=== PATIENT | male | born 1950 | race Caucasian/White ===

== ENCOUNTER 2017-09-14 10:43 | Outpatient (REF) | payer MEDICARE, MEDICAID, SELFPAY ==
[2017-09-14 21:01] LABS: Abs Immature Grans 0.03 k/cumm (0.0-0.09); Absolute Basophil Count 0.05 k/cumm (0.0-0.2); Absolute Eosinophil Count 0.19 k/cumm (0.0-0.7); Absolute Lymphocyte Count 0.89 k/cumm (1.2-3.4); Absolute Neutrophil Count 4.66 k/cumm (1.2-6.7); Basophils % 0.7; Eosinophils % 2.8; HCT 43.6 % (40.0-50.0); HGB 14.9 g/dL (13.5-17.5); Immature Grans % 0.4; Mean Corp. HGB Concentration 34.2 g/dL (32.0-36.0); Mean Corpuscular Hemoglobin 36.4 pg (27.0-33.0); Mean Corpuscular Volume 106.6 fL (80-95); Mean Platelet Volume 11.8 fL (8.0-11.0); Monocytes % 14.7; Neutrophils % 68.4; Platelet Count 179 x1000/uL (130-400); RBC 4.09 m/cumm (4.50-6.00); White Blood Cell Count 6.82 k/cumm (4.4-10.8)
[2017-09-14 21:23] LABS: ALT 52 U/L (12-78); AST 38 U/L (15-37); Alkaline Phosphatase 79 U/L (46-116); Anion Gap 11.2 mmol/L (3-11); BUN 19 mg/dL (7-18); Bilirubin, Total 0.4 mg/dL (0.2-1.0); CO2 23.8 mmol/L (21.0-32.0); CREATININE 1.31 mg/dL (0.70-1.30); Calcium 8.9 mg/dL (8.5-10.1); Chloride 104 mmol/L (98-107); Estimated GFR 54.74 (mL/min/1.73m2); Glucose 102 mg/dL (70-100); Potassium 4.5 mmol/L (3.5-5.1); Sodium 139 mmol/L (136-145); Total Protein 7.1 g/dL (6.4-8.2)
[2017-09-14 21:27] LABS: Diff Comment RBC Morph Reviewed; Macrocytosis 3+
[2017-09-16 09:38] LABS: CEA 0.7 ng/ml
== END 2017-09-14 10:44 ==
LOC: LBN 10:43
PROVIDERS: PCP Internal Medicine; Visit Provider Internal Medicine Hematology & Oncology
DX: C18.2 Malignant neoplasm of ascending colon (principal)
CPT/HCPCS: 80053; 82378; 85025

== ENCOUNTER 2018-01-11 13:52 | Outpatient (REF) | payer MEDICARE, MEDICAID, SELFPAY ==
[2018-01-11 19:57] LABS: Abs Immature Grans 0.03 k/cumm (0.0-0.09); Absolute Basophil Count 0.05 k/cumm (0.0-0.2); Absolute Eosinophil Count 0.16 k/cumm (0.0-0.7); Absolute Lymphocyte Count 0.95 k/cumm (1.2-3.4); Absolute Monocyte Count 0.69 k/cumm (0.11-0.7); Absolute Neutrophil Count 5.75 k/cumm (1.2-6.7); Basophils % 0.7; Eosinophils % 2.1; HGB 15.9 g/dL (13.5-17.5); Immature Grans % 0.4; Lymphocytes % 12.5; Mean Corp. HGB Concentration 35.3 g/dL (32.0-36.0); Mean Corpuscular Hemoglobin 34.4 pg (27.0-33.0); Mean Corpuscular Volume 97.4 fL (80-95); Mean Platelet Volume 12.1 fL (8.0-11.0); Neutrophils % 75.3; Platelet Count 198 x1000/uL (130-400); RBC 4.62 m/cumm (4.50-6.00); RBC Distribution Width 14.5 % (11.8-14.1); White Blood Cell Count 7.63 k/cumm (4.4-10.8)
[2018-01-11 20:37] LABS: Albumin 3.9 g/dL (3.4-5.0); Alkaline Phosphatase 81 U/L (46-116); Anion Gap 10.5 mmol/L (3-11); Bilirubin, Total 0.4 mg/dL (0.2-1.0); CO2 26.5 mmol/L (21.0-32.0); CREATININE 1.51 mg/dL (0.70-1.30); Calcium 9.3 mg/dL (8.5-10.1); Chloride 102 mmol/L (98-107); Estimated GFR 46.47 (mL/min/1.73m2); Glucose 141 mg/dL (70-100); Potassium 4.3 mmol/L (3.5-5.1); Sodium 139 mmol/L (136-145); Total Protein 7.1 g/dL (6.4-8.2)
[2018-01-11 21:18] LABS: AST 48 U/L (15-37)
[2018-01-11 21:22] LABS: BUN 23 mg/dL (7-18)
[2018-01-11 21:38] LABS: ALT 59 U/L (12-78)
[2018-01-13 08:44] LABS: CEA 0.6 ng/ml
== END 2018-01-11 14:12 ==
LOC: LBN 13:52
PROVIDERS: PCP Internal Medicine; Visit Provider Internal Medicine Hematology & Oncology
DX: C18.6 Malignant neoplasm of descending colon (principal)
CPT/HCPCS: 80053; 82378; 85025

== ENCOUNTER 2018-02-02 11:21 | Outpatient (REF) | payer MEDICARE, MEDICAID, SELFPAY ==
[2018-02-02 19:50] LABS: Iron 76 ug/dL (50-175); Total Iron Binding Capacity 351 ug/dL (250-450); Transferrin Sat 22 % (20-55)
[2018-02-02 19:53] LABS: ALT 52 U/L (12-78); AST 43 U/L (15-37); Albumin 4.2 g/dL (3.4-5.0); Alkaline Phosphatase 77 U/L (46-116); Bilirubin, Direct 0.13 mg/dL (0.00-0.20); Bilirubin, Total 0.5 mg/dL (0.2-1.0); Total Protein 7.6 g/dL (6.4-8.2)
[2018-02-02 20:31] LABS: Ferritin 178 ng/mL (8-388)
[2018-02-06 11:03] LABS: Hepatitis C Ab w Rflx HCV PCR Negative (NEGAT)
== END 2018-02-02 11:41 ==
LOC: NCHCN 11:21
PROVIDERS: PCP Internal Medicine; Visit Provider Internal Medicine
DX: R94.5 Abnormal results of liver function studies (principal); I10 Essential (primary) hypertension; C18.9 Malignant neoplasm of colon, unspecified; Z11.59 Encounter for screening for other viral diseases
CPT/HCPCS: 80076; 86803; 82728; 83540; 83550

== ENCOUNTER 2018-08-22 10:38 | Outpatient (REF) | payer MEDICARE, MEDICAID, SELFPAY ==
[2018-08-22 18:50] LABS: Abs Immature Grans 0.04 k/cumm (0.0-0.09); Absolute Basophil Count 0.04 k/cumm (0.0-0.2); Absolute Eosinophil Count 0.19 k/cumm (0.0-0.7); Absolute Lymphocyte Count 0.98 k/cumm (1.2-3.4); Absolute Monocyte Count 0.99 k/cumm (0.11-0.7); Basophils % 0.5; Eosinophils % 2.5; HGB 15.1 g/dL (13.5-17.5); Immature Grans % 0.5; Mean Corp. HGB Concentration 35.1 g/dL (32.0-36.0); Mean Corpuscular Hemoglobin 34.2 pg (27.0-33.0); Mean Corpuscular Volume 97.5 fL (80-95); Mean Platelet Volume 11.4 fL (8.0-11.0); Monocytes % 13.1; Neutrophils % 70.4; Platelet Count 163 x1000/uL (130-400); RBC 4.41 m/cumm (4.50-6.00); RBC Distribution Width 14.6 % (11.8-14.1); White Blood Cell Count 7.54 k/cumm (4.4-10.8)
[2018-08-22 18:59] LABS: ALT 41 U/L (12-78); AST 27 U/L (15-37); Albumin 3.8 g/dL (3.4-5.0); Alkaline Phosphatase 87 U/L (46-116); Anion Gap 13.9 mmol/L (3-11); BUN 22 mg/dL (7-18); Bilirubin, Total 0.4 mg/dL (0.2-1.0); CO2 22.1 mmol/L (21.0-32.0); CREATININE 1.22 mg/dL (0.70-1.30); Calcium 9.3 mg/dL (8.5-10.1); Chloride 105 mmol/L (98-107); Estimated GFR 59.25 (mL/min/1.73m2); Glucose 95 mg/dL (70-100); Potassium 4.6 mmol/L (3.5-5.1); Sodium 141 mmol/L (136-145); Total Protein 6.7 g/dL (6.4-8.2)
[2018-08-24 09:13] LABS: CEA 1.1 ng/ml
== END 2018-08-22 10:58 ==
LOC: LBN 10:38
PROVIDERS: PCP Internal Medicine; Visit Provider Internal Medicine Hematology & Oncology
DX: C18.6 Malignant neoplasm of descending colon (principal)
CPT/HCPCS: 80053; 82378; 85025

== ENCOUNTER 2019-02-28 14:45 | Outpatient (REF) | payer MEDICARE, MEDICAID, SELFPAY ==
[2019-02-28 20:32] LABS: BUN 29 mg/dL (7-18); CREATININE 1.38 mg/dL (0.70-1.30); Calcium 9.6 mg/dL (8.5-10.1); Chloride 104 mmol/L (98-107); Glucose 121 mg/dL (74-106); Potassium 4.2 mmol/L (3.5-5.1); Sodium 140 mmol/L (136-145); Uric Acid 6.3 mg/dL (3.5-7.2)
== END 2019-02-28 15:05 ==
LOC: NCHCN 14:45
PROVIDERS: PCP Internal Medicine; Visit Provider Internal Medicine
DX: I10 Essential (primary) hypertension (principal); K43.2 Incisional hernia without obstruction or gangrene; M10.342 Gout due to renal impairment, left hand; E66.9 Obesity, unspecified
CPT/HCPCS: 80048; 84550

== ENCOUNTER 2019-04-04 10:45 | Outpatient (REF) | payer MEDICARE, MEDICAID, SELFPAY ==
[2019-04-04 21:29] LABS: Abs Immature Grans 0.06 k/cumm (0.0-0.09); Absolute Basophil Count 0.06 k/cumm (0.0-0.2); Absolute Eosinophil Count 0.36 k/cumm (0.0-0.7); Absolute Lymphocyte Count 0.93 k/cumm (1.2-3.4); Absolute Monocyte Count 0.97 k/cumm (0.11-0.7); Absolute Neutrophil Count 5.98 k/cumm (1.2-6.7); Basophils % 0.7; Eosinophils % 4.3; HCT 46.6 % (40.0-50.0); HGB 15.7 g/dL (13.5-17.5); Immature Grans % 0.7 %; Lymphocytes % 11.1; Mean Corp. HGB Concentration 33.7 g/dL (32.0-36.0); Mean Corpuscular Hemoglobin 32.7 pg (27.0-33.0); Mean Corpuscular Volume 97.1 fL (80-95); Mean Platelet Volume 11.9 fL (8.0-11.0); Monocytes % 11.6; Neutrophils % 71.6; Platelet Count 147 x1000/uL (130-400); White Blood Cell Count 8.36 k/cumm (4.4-10.8)
[2019-04-04 21:40] LABS: ALT 50 U/L (16-63); AST 34 U/L (15-37); Alkaline Phosphatase 78 U/L (46-116); BUN 25 mg/dL (7-18); Bilirubin, Total 0.3 mg/dL (0.2-1.0); CREATININE 1.48 mg/dL (0.70-1.30); Calcium 8.9 mg/dL (8.5-10.1); Chloride 104 mmol/L (98-107); Estimated GFR 47.41 (mL/min/1.73m2); Glucose 102 mg/dL (74-106); Potassium 4.4 mmol/L (3.5-5.1); Sodium 139 mmol/L (136-145)
== END 2019-04-04 11:05 ==
LOC: LBN 10:45
PROVIDERS: PCP Internal Medicine; Visit Provider Internal Medicine Hematology & Oncology
DX: C18.6 Malignant neoplasm of descending colon (principal)
CPT/HCPCS: 80053; 82378; 85025

== ENCOUNTER 2019-06-06 08:34 | Outpatient (REF) | payer MEDICARE, MEDICAID, SELFPAY ==
[2019-06-06 19:14] LABS: ALT 38 U/L (16-63); AST 30 U/L (15-37); Albumin 4.1 g/dL (3.4-5.0); Alkaline Phosphatase 75 U/L (46-116); BUN 22 mg/dL (7-18); Bilirubin, Total 0.5 mg/dL (0.2-1.0); CREATININE 1.44 mg/dL (0.70-1.30); Calcium 9.9 mg/dL (8.5-10.1); Calculated LDL 71 mg/dL (<100); Chloride 101 mmol/L (98-107); Cholesterol 167 mg/dL (<200); Estimated GFR 48.79 (mL/min/1.73m2); Glucose 105 mg/dL (74-106); HDL Cholesterol 57 mg/dL (40-60); Potassium 4.7 mmol/L (3.5-5.1); Sodium 138 mmol/L (136-145); Total Protein 7.3 g/dL (6.4-8.2); Triglyceride 199 mg/dL (<150)
[2019-06-06 20:12] LABS: Abs Immature Grans 0.03 k/cumm (0.0-0.09); Absolute Basophil Count 0.06 k/cumm (0.0-0.2); Absolute Eosinophil Count 0.21 k/cumm (0.0-0.7); Absolute Lymphocyte Count 0.99 k/cumm (1.2-3.4); Absolute Monocyte Count 0.67 k/cumm (0.11-0.7); Absolute Neutrophil Count 4.35 k/cumm (1.2-6.7); Eosinophils % 3.3; HCT 46.6 % (40.0-50.0); HGB 15.6 g/dL (13.5-17.5); Immature Grans % 0.5 %; Lymphocytes % 15.7; Mean Corp. HGB Concentration 33.5 g/dL (32.0-36.0); Mean Corpuscular Hemoglobin 33.1 pg (27.0-33.0); Mean Corpuscular Volume 98.7 fL (80-95); Mean Platelet Volume 12.3 fL (8.0-11.0); Monocytes % 10.6; Neutrophils % 68.9; Platelet Count 158 x1000/uL (130-400); RBC 4.72 m/cumm (4.50-6.00); RBC Distribution Width 14.6 % (11.8-14.1); White Blood Cell Count 6.31 k/cumm (4.4-10.8)
== END 2019-06-06 08:54 ==
LOC: NCHCN 08:34
PROVIDERS: PCP Internal Medicine; Visit Provider Internal Medicine
DX: E78.5 Hyperlipidemia, unspecified (principal); C18.6 Malignant neoplasm of descending colon
CPT/HCPCS: 80053; 80061; 82378; 85025

== ENCOUNTER 2020-03-24 17:12 | Outpatient (REF) | payer MEDICARE, MEDICAID, SELFPAY ==
[2020-03-24 18:54] LABS: HCT 44.2 % (40.0-50.0); HGB 14.6 g/dL (13.5-17.5); MCH 32.1 pg (27.0-33.0); MCV 97.1 fL (80-95); MPV 12.4 fL (8.0-11.0); Platelet Count 174 10^3/uL (130-400); RBC 4.55 10^6/uL (4.36-5.78); RDW 15.6 % (11.8-14.1); RDW-SD 55.1 fL; WBC 8.22 10^3/uL (4.4-10.8)
[2020-03-24 19:08] LABS: ALT 46 U/L (16-63); AST 31 U/L (15-37); Albumin 3.8 g/dL (3.4-5.0); Alkaline Phosphatase 109 U/L (46-116); Anion Gap 13.4 mmol/L (3-11); BUN 19 mg/dL (7-18); Bilirubin, Total 0.2 mg/dL (0.2-1.0); CO2 23.6 mmol/L (21.0-32.0); CREATININE 1.2 mg/dL (0.70-1.30); Calcium 9.4 mg/dL (8.5-10.1); Chloride 106 mmol/L (98-107); Glucose 144 mg/dL (74-106); Potassium 4.3 mmol/L (3.5-5.1); Sodium 143 mmol/L (136-145); Uric Acid 5.3 mg/dL (3.5-7.2)
[2020-03-24 19:12] LABS: Hemoglobin A1C 6.5 % (<5.7)
== END 2020-03-24 17:13 | disposition home or self-care (01) ==
LOC: NCHCN 17:12
PROVIDERS: PCP Internal Medicine; Visit Provider Internal Medicine
DX: I10 Essential (primary) hypertension (principal); C18.9 Malignant neoplasm of colon, unspecified; Z79.01 Long term (current) use of anticoagulants; E66.9 Obesity, unspecified; R73.09 Other abnormal glucose
CPT/HCPCS: 80053; 85027; 83036; 84550

== ENCOUNTER 2020-05-12 09:29 | Outpatient (REF) | payer MEDICARE, MEDICAID, SELFPAY ==
[2020-05-12 15:06] LABS: Abs Immature Grans 0.06 10^3/uL (0.0-0.06); Absolute Basophil Count 0.08 10^3/uL (0.0-0.2); Absolute Eosinophil Count 0.14 10^3/uL (0.0-0.7); Absolute Lymphocyte Count 0.88 10^3/uL (1.2-3.4); Absolute Monocyte Count 0.67 10^3/uL (0.1-0.8); Absolute Neutrophil Count 4.66 10^3/uL (1.2-6.7); Basophils % 1.2; Eosinophils % 2.2; HCT 44.8 % (40.0-50.0); HGB 14.8 g/dL (13.5-17.5); Immature Grans % 0.9; Lymphocytes % 13.6; MCH 32.6 pg (27.0-33.0); MCV 98.7 fL (80-95); MPV 12.5 fL (8.0-11.0); Monocytes % 10.3; Neutrophils % 71.8; Nucleated RBC 0 %; Platelet Count 171 10^3/uL (130-400); RBC 4.54 10^6/uL (4.36-5.78); RDW 15.7 % (11.8-14.1); RDW-SD 57.4 fL; WBC 6.49 10^3/uL (4.4-10.8)
[2020-05-12 15:35] LABS: ALT 41 U/L (16-63); AST 24 U/L (15-37); Albumin 3.8 g/dL (3.4-5.0); Alkaline Phosphatase 114 U/L (46-116); Anion Gap 9.4 mmol/L (3-11); BUN 31 mg/dL (7-18); Bilirubin, Total 0.3 mg/dL (0.2-1.0); CO2 24.6 mmol/L (21.0-32.0); CREATININE 1.5 mg/dL (0.70-1.30); Calcium 8.8 mg/dL (8.5-10.1); Chloride 104 mmol/L (98-107); Glucose 130 mg/dL (74-106); Potassium 4.6 mmol/L (3.5-5.1); Sodium 138 mmol/L (136-145); Total Protein 6.9 g/dL (6.4-8.2)
== END 2020-05-12 09:30 | disposition home or self-care (01) ==
LOC: LBN 09:29
PROVIDERS: PCP Internal Medicine; Visit Provider Internal Medicine Hematology & Oncology
DX: C18.6 Malignant neoplasm of descending colon (principal)
CPT/HCPCS: 80053; 82378; 85025

== ENCOUNTER 2020-11-07 11:43 | Outpatient (REF) | payer MEDICARE, MEDICAID, SELFPAY ==
[2020-11-07 18:28] LABS: Abs Immature Grans 0.05 10^3/uL (0.0-0.06); Absolute Basophil Count 0.07 10^3/uL (0.0-0.2); Absolute Eosinophil Count 0.13 10^3/uL (0.0-0.7); Absolute Lymphocyte Count 0.77 10^3/uL (1.2-3.4); Absolute Monocyte Count 0.76 10^3/uL (0.1-0.8); Absolute Neutrophil Count 4.88 10^3/uL (1.2-6.7); Basophils % 1.1; HCT 42.8 % (40.0-50.0); HGB 14.1 g/dL (13.5-17.5); Immature Grans % 0.8; Lymphocytes % 11.6; MCH 33.3 pg (27.0-33.0); MCHC 32.9 % (32.0-36.0); MCV 100.9 fL (80-95); MPV 12.6 fL (8.0-11.0); Monocytes % 11.4; Neutrophils % 73.1; Nucleated RBC 0 %; Platelet Count 167 10^3/uL (130-400); RBC 4.24 10^6/uL (4.36-5.78); RDW 15.2 % (11.8-14.1); WBC 6.66 10^3/uL (4.4-10.8)
[2020-11-07 18:53] LABS: ALT 42 U/L (16-63); AST 26 U/L (15-37); Albumin 3.8 g/dL (3.4-5.0); Alkaline Phosphatase 90 U/L (46-116); Anion Gap 9.8 mmol/L (3-11); BUN 19 mg/dL (7-18); Bilirubin, Total 0.3 mg/dL (0.2-1.0); CO2 23.2 mmol/L (21.0-32.0); CREATININE 1.3 mg/dL (0.70-1.30); Calcium 8.7 mg/dL (8.5-10.1); Chloride 108 mmol/L (98-107); Estimated GFR 54.73 (mL/min/1.73m2); Glucose 123 mg/dL (74-106); Potassium 4.8 mmol/L (3.5-5.1); Sodium 141 mmol/L (136-145); Total Protein 6.8 g/dL (6.4-8.2)
[2020-11-10 10:35] LABS: CEA <2.0 ng/mL (See Note)
== END 2020-11-07 11:44 | disposition home or self-care (01) ==
LOC: LBN 11:43
PROVIDERS: Internal Medicine Hematology & Oncology; PCP Internal Medicine; Visit Provider Nurse Practitioner Family
DX: C18.6 Malignant neoplasm of descending colon (principal)
CPT/HCPCS: 80053; 82378; 85025

== ENCOUNTER 2021-07-17 18:50 | Outpatient (REF) | payer MEDICARE, MEDICAID, SELFPAY ==
[2021-07-17 19:23] LABS: Abs Immature Grans 0.15 10^3/uL (0.0-0.06); Absolute Basophil Count 0.06 10^3/uL (0.0-0.2); Absolute Eosinophil Count 0.14 10^3/uL (0.0-0.7); Absolute Lymphocyte Count 1.15 10^3/uL (1.2-3.4); Absolute Monocyte Count 0.83 10^3/uL (0.1-0.8); Absolute Neutrophil Count 6.75 10^3/uL (1.2-6.7); Basophils % 0.7; Eosinophils % 1.5; HCT 38.3 % (40.0-50.0); HGB 12.4 g/dL (13.5-17.5); Immature Grans % 1.7; Lymphocytes % 12.7; MCH 31.6 pg (27.0-33.0); MCHC 32.4 % (32.0-36.0); MCV 98 fL (80-95); MPV 12.3 fL (8.0-11.0); Monocytes % 9.1; Neutrophils % 74.3; Platelet Count 219 10^3/uL (130-400); RBC 3.92 10^6/uL (4.36-5.78); RDW 17.1 % (11.8-14.1); RDW-SD 61.2 fL; WBC 9.08 10^3/uL (4.4-10.8)
[2021-07-17 20:16] LABS: ALT 30 U/L (16-63); AST 28 U/L (15-37); Albumin 3.4 g/dL (3.4-5.0); Alkaline Phosphatase 81 U/L (46-116); Anion Gap 13.9 mmol/L (3-11); BUN 24 mg/dL (7-18); Bilirubin, Total 0.2 mg/dL (0.2-1.0); CO2 21.1 mmol/L (21.0-32.0); CREATININE 1.3 mg/dL (0.70-1.30); Calcium 9.1 mg/dL (8.5-10.1); Chloride 106 mmol/L (98-107); Estimated GFR 54.57 (mL/min/1.73m2); Glucose 105 mg/dL (74-106); Potassium 4.5 mmol/L (3.5-5.1); Sodium 141 mmol/L (136-145); Total Protein 6.6 g/dL (6.4-8.2)
== END 2021-07-17 18:51 | disposition home or self-care (01) ==
LOC: LBN 18:50
PROVIDERS: PCP Internal Medicine; Visit Provider Internal Medicine Hematology & Oncology
DX: C18.2 Malignant neoplasm of ascending colon (principal)
CPT/HCPCS: 80053; 82378; 85025

== ENCOUNTER 2021-12-03 19:26 | Outpatient (REF) | payer MEDICARE, MEDICAID, SELFPAY ==
[2021-12-03 19:49] LABS: Abs Immature Grans 0.06 10^3/uL (0.0-0.06); Absolute Basophil Count 0.05 10^3/uL (0.0-0.2); Absolute Lymphocyte Count 0.95 10^3/uL (1.2-3.4); Absolute Monocyte Count 0.89 10^3/uL (0.1-0.8); Absolute Neutrophil Count 6.81 10^3/uL (1.2-6.7); Basophils % 0.6; Eosinophils % 2.2; HCT 41.7 % (40.0-50.0); HGB 13.6 g/dL (13.5-17.5); Immature Grans % 0.7; Lymphocytes % 10.6; MCHC 32.6 % (32.0-36.0); MCV 92 fL (80-95); MPV 12.8 fL (8.0-11.0); Monocytes % 9.9; Platelet Count 138 10^3/uL (130-400); RBC 4.54 10^6/uL (4.36-5.78); RDW 16.8 % (11.8-14.1); RDW-SD 56.7 fL; WBC 8.96 10^3/uL (4.4-10.8)
[2021-12-03 19:58] LABS: ALT 35 U/L (16-63); AST 32 U/L (15-37); Albumin 3.7 g/dL (3.4-5.0); Alkaline Phosphatase 94 U/L (46-116); Anion Gap 10.4 mmol/L (3-11); BUN 31 mg/dL (7-18); Bilirubin, Total 0.4 mg/dL (0.2-1.0); CO2 22.6 mmol/L (21.0-32.0); CREATININE 1.5 mg/dL (0.70-1.30); Calcium 9.5 mg/dL (8.5-10.1); Chloride 107 mmol/L (98-107); Estimated GFR 49.77 (mL/min/1.73m2); Glucose 121 mg/dL (74-106); Potassium 4.1 mmol/L (3.5-5.1); Sodium 140 mmol/L (136-145); Total Protein 7.5 g/dL (6.4-8.2)
== END 2021-12-03 19:27 | disposition home or self-care (01) ==
LOC: LBN 19:26
PROVIDERS: PCP Internal Medicine; Visit Provider Internal Medicine Hematology & Oncology
DX: C18.2 Malignant neoplasm of ascending colon (principal)
CPT/HCPCS: 80053; 82378; 85025

== ENCOUNTER 2023-10-20 19:50 | Outpatient (REF) | payer MEDICARE, MEDICAID, SELFPAY ==
[2023-10-20 19:43] LABS: Abs Immature Grans 0.07 10^3/uL (0.0-0.06); Absolute Basophil Count 0.06 10^3/uL (0.0-0.2); Absolute Eosinophil Count 0.14 10^3/uL (0.0-0.7); Absolute Lymphocyte Count 0.93 10^3/uL (1.2-3.4); Absolute Monocyte Count 0.94 10^3/uL (0.1-0.8); Absolute Neutrophil Count 5.67 10^3/uL (1.2-6.7); Basophils % 0.8 %; Eosinophils % 1.8 %; HCT 43.5 % (40.0-50.0); HGB 14.2 g/dL (13.5-17.5); Immature Grans % 0.9 %; Lymphocytes % 11.9 %; MCH 32.6 pg (27.0-33.0); MCHC 32.6 % (32.0-36.0); MCV 100 fL (80-95); MPV 12.9 fL (8.0-11.0); Neutrophils % 72.6 %; Platelet Count 145 10^3/uL (130-400); RBC 4.36 10^6/uL (4.36-5.78); RDW 15.8 % (11.8-14.1); RDW-SD 57.9 fL; WBC 7.81 10^3/uL (4.4-10.8)
[2023-10-20 20:07] LABS: ALT 47 U/L (16-63); AST 47 U/L (15-37); Albumin 3.3 g/dL (3.4-5.0); Alkaline Phosphatase 86 U/L (46-116); Anion Gap 11.8 mmol/L (3-11); BUN 27 mg/dL (7-18); Bilirubin, Total 0.31 mg/dL (0.2-1.0); CO2 20.2 mmol/L (21.0-32.0); CREATININE 1.4 mg/dL (0.70-1.30); Calculated LDL 45 mg/dL (<100); Chloride 108 mmol/L (98-107); Cholesterol 146 mg/dL (<200); Glucose 110 mg/dL (74-106); HDL Cholesterol 42 mg/dL (40-60); Potassium 4.5 mmol/L (3.5-5.1); Sodium 140 mmol/L (136-145); Total Protein 6.9 g/dL (6.4-8.2); Triglyceride 297 mg/dL (<150)
== END 2023-10-20 19:51 | disposition home or self-care (01) ==
LOC: NCHCN 19:50
PROVIDERS: PCP Internal Medicine; Visit Provider Internal Medicine
DX: E78.5 Hyperlipidemia, unspecified (principal)
CPT/HCPCS: 80053; 80061; 85025

== ENCOUNTER 2024-10-15 12:07 | Outpatient (REF) | payer MEDICARE, MEDICAID, SELFPAY ==
[2024-10-15 19:02] LABS: HCT 45.0 % (40.0-50.0); HGB 14.8 g/dL (13.5-17.5); MCH 31.6 pg (27.0-33.0); MCHC 32.9 % (32.0-36.0); MCV 96 fL (80-95); MPV 12.1 fL (8.0-11.0); Platelet Count 286 10^3/uL (130-400); RBC 4.68 10^6/uL (4.36-5.78); RDW 15.2 % (11.8-14.1); RDW-SD 54.3 fL; WBC 15.57 10^3/uL (4.4-10.8)
[2024-10-15 19:27] LABS: Anion Gap 11.7 mmol/L (3-11); BUN 53 mg/dL (7-18); CO2 23.3 mmol/L (21.0-32.0); Calcium 9.3 mg/dL (8.5-10.1); Chloride 104 mmol/L (98-107); Estimated GFR 45.21 (mL/min/1.73m2); Glucose 133 mg/dL (74-106); Potassium 4.7 mmol/L (3.5-5.1); Sodium 139 mmol/L (136-145); TSH 1.80 uIU/mL (0.36-3.74)
== END 2024-10-15 12:08 | disposition home or self-care (01) ==
LOC: NCHCN 12:07
PROVIDERS: PCP Internal Medicine; Visit Provider Internal Medicine
DX: I10 Essential (primary) hypertension (principal)
CPT/HCPCS: 80048; 85027; 84443